=== PATIENT | female | born 1960 | race Caucasian/White ===

== ENCOUNTER 2020-09-07 09:48 | Outpatient (CLI) | payer BC, SELFPAY ==
[2020-09-07 10:45] LABS: Basophils Absolute Auto 0.1 K/mm3 (0.0-0.1); Basophils Percent Auto 1.1 % (0.2-1.2); Eosinophils Absolute Auto 0.3 K/mm3 (0-0.3); Eosinophils Percent Auto 5.1 % (0-4.4); Hematocrit 37.6 % (37.0-47.0); Hemoglobin 12.2 g/dL (12.0-15.0); Immature Granulocyte Absolute 0.01 K/mm3 (0.00-0.031); Immature Granulocyte Percent A 0.2 % (0-0.5); Lymphocytes Absolute Auto 1.24 K/mm3 (0.9-3.2); Lymphocytes Percent Auto 22.4 % (18.3-44.2); Mean Corpuscular HGB Conc 32.4 g/dl (32-36); Mean Corpuscular Hemoglobin 31.5 pg (26-34); Mean Corpuscular Volume 97.2 fl (80-100); Mean Platelet Volume 10.5 fl (7.4-10.4); Monocytes Absolute Auto 0.4 K/mm3 (0.1-0.6); Monocytes Percent Auto 6.7 % (2.6-8.5); Neutrophils Absolute Auto 3.6 K/mm3 (1.3-6.7); Neutrophils Percent Auto 64.5 % (45.5-73.1); Platelet Count Result 206 k/mm3 (150-375); Red Blood Count 3.87 M/mm3 (4.2-5.4); Red Cell Distribution Width 12.6 % (11.5-14.5); White Blood Count 5.5 K/mm3 (4.5-10.0)
[2020-09-07 10:55] LABS: INR 0.9; Prothrombin Time 12.6 Seconds (11.1-14.7)
[2020-09-07 10:56] LABS: Partial Thromboplastin Time 24.8 SECONDS (22.3-36.8)
[2020-09-07 10:58] LABS: Alanine Aminotransferase 24 U/L (4-35); Alkaline Phosphatase 55 U/L (38-126); Anion Gap 4 mmol/L (8-16); Aspartate Amino Transferase 30 U/L (14-36); Bilirubin,Total 0.6 mg/dL (0.2-1.3); Blood Urea Nitrogen 19 mg/dL (7-17); Calcium 9.2 mg/dL (8.4-10.2); Carbon Dioxide 33 mmol/L (22-30); Chloride 100 mmol/L (98-107); Estimated Glomerular Filt Rate > 60; Glucose 86 mg/dL (65-105); Potassium 3.9 mmol/L (3.4-5.0); Sodium 137 mmol/L (137-145)
== END 2020-09-07 09:49 | disposition home or self-care (01) ==
LOC: ANHSURGERY 09:52
PROVIDERS: PCP Family Medicine; Visit Provider Urology
DX: N39.3 Stress incontinence (female) (male) (principal); Z01.818 Encounter for other preprocedural examination
CPT/HCPCS: 36415; 80053; 85025; 85610; 85730; 86850; 86900; 86901; 87086

== ENCOUNTER 2020-09-16 01:57 | Outpatient (CLI) | payer BC, SELFPAY ==
[2020-09-16 19:10] LABS: SARS-CoV-2 RNA PCR Negative
== END 2020-09-16 01:58 | disposition home or self-care (01) ==
LOC: ANHCOVIDDT 01:57
PROVIDERS: PCP Family Medicine; Visit Provider Urology
DX: Z01.818 Encounter for other preprocedural examination (principal); Z20.828 Contact with and (suspected) exposure to other viral communicable diseases
CPT/HCPCS: 87635; C9803; U0003

== ENCOUNTER 2020-09-19 00:37 | Day surgery (SDC) | payer BC, SELFPAY ==
[2020-09-07 09:57] VITALS: BMI 31.2
[2020-09-07 10:31] VITALS: BP 167/76; PULSE 75; RESP 16; TEMP 37.2; O2SAT 96
--- NOTE | 2020-09-09 09:29 | PM.IMHP ---
H&P: HPI History of Present Illness Date/Time: 09/09/20 09:29 Chief complaint: stress incontinence, vag vault prolapse,rectocele Narrative: Jessica Garcias is a 60 year old female with POP and IZZY Review of Systems Review of Systems: All systems reviewed & are unremarkable except as noted in HPI and below PMFSH Past Medical History Medical History (Updated 09/09/20 @ 09:37 by Dennis Wagner MD) Acquired hypothyroidism Multinodular goiter Surgical History Surgical History H/O: hysterectomy Family History Family History Mother Hypertension Family history of diabetes mellitus in first degree relative Grandparent Carcinoma of colon Father Family history of heart disease in male family member before age 55 Other Diabetes mellitus Family history of arthritis Family history of malignant neoplasm Family history of obesity Family history of osteoporosis Family history of thyroid disease Social History Social History Smoking status: Never smoker Alcohol intake: never 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 Spiritual care concerns: No Meds Home Medications and Allergies Home Medications Medication Instructions Recorded Confirmed Type cetirizine 10 mg tablet 10 mg PO HS 10/29/19 09/07/20 History estradiol 2 mg tablet 2 mg PO DAILY 10/29/19 09/07/20 History levothyroxine 100 mcg tablet 100 mcg PO DAILY #90 tablet 04/21/20 09/07/20 Rx tramadol 50 mg tablet 50 mg PO Q8H PRN #60 tablet 08/29/20 09/07/20 Rx calcium carbonate-vitamin D3 1 tablet PO HS 09/07/20 09/07/20 History [Calcium 500 + D (D3)] fluticasone propionate [Flonase 2 spray NASAL PRN PRN 09/07/20 09/07/20 History Allergy Relief] meloxicam 15 mg PO HS 09/07/20 09/07/20 History multivitamin,[id number] 1 tablet PO HS 09/07/20 09/07/20 History [Complete Multivitamin] sumatriptan succinate 100 mg PO PRN PRN 09/07/20 09/07/20 History Allergies Allergy/AdvReac Type Severity Reaction Status Date / Time cefuroxime Allergy Severe Rash Verified 09/07/20 10:00 iodine Allergy Unknown Unknown Verified 09/07/20 10:00 Penicillins Allergy Unknown Unknown Verified 09/07/20 10:00 Sulfa (Sulfonamide Allergy Unknown Unknown Verified 09/07/20 10:00 Antibiotics) Exam Const: General: cooperative and healthy appearing HENMT: Head: normal to inspection Mouth: Yes Normal oral and palatal mucosa present Resp: Effort & Inspection: normal respiratory effort and able to speak in complete sentences : Bimanual Exam- Adnexa, other: vaginal apex descent (apex at -2, posterior wall at +2) Skin: General skin exam: normal color Extrem: General: normal to inspection Psych: Appearance: grossly normal Assessment and Plan Assessment and plan (1) Prolapse of vaginal vault after hysterectomy: Code(s): N99.3 - Prolapse of vaginal vault after hysterectomy Status: Acute Assessment and Plan: robotic colpopexy (2) IZZY (stress urinary incontinence, female): Code(s): N39.3 - Stress incontinence (female) (male) Status: Acute Assessment and Plan: urethral sling
[2020-09-19] VITALS (14 sets, daily range): BP systolic 113–152; BP diastolic 50–86; PULSE 59–93; RESP 14–20; TEMP 36.3–36.4; O2SAT 93–100
--- NOTE | 2020-09-19 07:14 | WPDHPUPDATE1 ---
History and Physical Update Update Date/Time: 09/19/20 07:14 History and Physical has been reviewed, including an updated exam of the patient. There are NO changes in the patient's condition. Risks, benefits, and alternatives have been discussed and questions answered. Patient agrees to proceed with procedure.
[2020-09-19] MEDS: LACTATED RINGERS 1,000 ML 30 ML IV CONT ×3 (09:15→15:55)
--- NOTE | 2020-09-19 09:23 | WPDANESEPPF ---
Anes - Initial Pre Proc Eval Procedure: Operation Date: 09/19/20 11:00 Proposed Procedures p Robotic Sacrocolpopexy, Urethral Sling - Dennis Wagner MD Date/Time: 09/19/20 09:23 Surgeon: Dennis Wagner MD Pre Op Diagnosis: stress incontinence, vag vault prolapse,rectocele Patient Data Age: 60 Gender: F Height: 5 ft 4 in Weight: 82 kg Last Vital Signs Temp 99.0 F 09/07/20 10:31 Pulse 75 09/07/20 10:31 Resp 16 09/07/20 10:31 BP 167/76 H 09/07/20 10:31 Pulse Ox 96 09/07/20 10:31 Allergies Allergy/AdvReac Type Severity Reaction Status Date / Time cefuroxime Allergy Severe Rash Verified 09/19/20 08:53 iodine Allergy Unknown Unknown Verified 09/19/20 08:53 Penicillins Allergy Unknown Unknown Verified 09/19/20 08:53 Sulfa (Sulfonamide Allergy Unknown Unknown Verified 09/19/20 08:53 Antibiotics) Home Medications Medication Instructions Recorded Confirmed Type cetirizine 10 mg tablet 10 mg PO HS 10/29/19 09/19/20 History estradiol 2 mg tablet 2 mg PO DAILY 10/29/19 09/19/20 History levothyroxine 100 mcg tablet 100 mcg PO DAILY #90 tablet 04/21/20 09/19/20 Rx tramadol 50 mg tablet 50 mg PO Q8H PRN #60 tablet 08/29/20 09/19/20 Rx calcium carbonate-vitamin D3 1 tablet PO HS 09/07/20 09/19/20 History [Calcium 500 + D (D3)] fluticasone propionate [Flonase 2 spray NASAL PRN PRN 09/07/20 09/07/20 History Allergy Relief] meloxicam 15 mg PO HS 09/07/20 09/19/20 History multivitamin,rn-hkfq-[id number] 1 tablet PO HS 09/07/20 09/19/20 History [Complete Multivitamin] sumatriptan succinate 100 mg PO PRN PRN 09/07/20 09/07/20 History Patient hx anesthesia problems: post op nausea/vomiting Family hx anesthesia problems: none PMFSH Past Medical History Medical History (Updated 09/19/20 @ 09:18 by Augusto Hyde MD) Acquired hypothyroidism Hypothyroidism Migraine Multinodular goiter Sleep apnea syndrome Surgical History Surgical History H/O: hysterectomy Family History Family History Mother Hypertension Family history of diabetes mellitus in first degree relative Grandparent Carcinoma of colon Father Family history of heart disease in male family member before age 55 Other Diabetes mellitus Family history of arthritis Family history of malignant neoplasm Family history of obesity Family history of osteoporosis Family history of thyroid disease Social History Social History Smoking status: Never smoker Alcohol intake: never Living arrangements: with family 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 Questions were solicited and answers provided to the satisfaction of the patient/family/POA.
[2020-09-19] MEDS: ONDANSETRON INJ 4 MG/2 ML VIAL IV PUSH (09:35)
[2020-09-19] MEDS: SCOPOLAMINE 1.5 MG PATCH TRANSDERM (09:36)
[2020-09-19] MEDS: levoFLOXacin 500 MG/D5W 100 ML 500 MG/100 ML BAG 100 MG IVPB (10:32)
--- NOTE | 2020-09-19 13:10 | PM.PROC ---
Procedure Note - Detailed Date of procedure: 09/19/20 Pre-op diagnosis: stress incontinence, vag vault prolapse,rectocele Post hysterectomy vaginal vault prolapse Stress urinary incontinence Post-op diagnosis: same Procedure performed: Robotic assisted laparoscopic sacral colpopexy Miid urethral sling Description of procedure: Anesthesia: General She understands the risks of bleeding, infection, recurrence of prolapse, diskitis, postoperative voiding dysfunction including incontinence and retention, dyspareunia, persistent or recurrent stress incontinence, vaginal mesh extrusion, urinary tract mesh erosion, bowel injury or obstruction, damage to surrounding organs, medical related complications. Agrees to proceed She was correctly identified and informed consent was obtained. She is brought to the operating room. She was given general anesthesia. She was placed in the low lithotomy position. All pressure points were padded. She was given appropriate perioperative antibiotics. A time-out was performed. I anesthetized the skin 3 fingerbreadths cephalad to the umbilicus. I incised the skin. I located the fascia. I entered the fascia sharply. I placed Vicryl sutures for later fascial closure. I placed a midline trocar. Under direct vision 2 additional trocars were placed in the right and left upper quadrant. She was placed in steep Trendelenburg. The robot was docked. I then sat at the console. There were some adhesions of colonic fat to the cul-de-sac. These were taken down sharply. With the Sizer in the vagina I created a plane on the anterior and posterior vaginal wall. I took great care not to injure the vagina bladder or rectum. Of note was intensely scarred in this area due to previous hysterectomy and cystocele repair. I introduced the mesh into the abdomen. I sewed the anterior leaflet of mesh on the anterior vaginal wall and posterior leaflet of mesh on the posterior vaginal wall with several sutures with 2 Goritex taking great care not to go through and through. I then reflected the colon laterally. I opened up the peritoneum over the sacral promontory. I carried this incision into the cul-de-sac. I located the ureter and kept lateral. I freed up the edges of the peritoneum. I located the anterior longitudinal ligament of the sacrum. I then tensioned my mesh appropriately. I did a vaginal exam to ensure prolapse reduction without undue tension. I then sewed the proximal leaflet of mesh onto the ligament with 3 sutures of 2 0 [place]. I used a 2 0 Monocryl to completely and meticulously retroperitonealized all mesh. I allowed the colon to go back into its normal anatomic location no sign of any impingement or stricturing. The abdomen was exited. Fascial sutures were closed. Skin was closed. Glue was applied. She was repositioned and prepped for urethral sling. I marked out the thigh incisions. I anesthetized the skin and made those incisions. I anesthetized the anterior vaginal wall over the mid urethra. I made a 1 cm incision. I dissected out laterally taking great care not to injure the urethra or the vaginal wall. I passed the helical trocars. First on the left and then on the right. This was done from the thigh incision towards the vaginal incision. The sling was connected to the trocars and brought out through the thigh incision. I tensioned the sling appropriately. I cut and removed the plastic sheaths. I then closed the incision with 2 0 Vicryl. Cystoscopy showed no surgical artifact in the bladder. No surgical artifact in the urethra. Ureteral orifices were seen to excrete clear yellow urine. The Sneed catheter was replaced. She was awakened and transferred to the PACU in stable condition. Implants: Y mesh Anesthesia: GETA Surgeon: Dennis Wagner MD Estimated blood loss (mL): 30 Drains: Yes (Sneed catheter) Packing: No Pathology: none sent Complications: No immediate complications Condition: stable
[2020-09-19] MEDS: fentaNYL CITRATE INJ (*CRX) 100 MCG/2 ML VIAL 25 MCG IV PUSH ×4 (13:35→13:47)
--- NOTE | 2020-09-19 13:51 | SUR.PHASEI ---
1350 - abdominal binder placed on pt for comfort
[2020-09-19] MEDS: oxyCODONE HCL (*CRX) 5 MG TAB IR PO (17:12)
--- NOTE | 2020-09-19 18:35 | SUR.PHASEII ---
PT HAD 300 POST URINATION RESIDUAL. CALLED DR STEPHEN AND HE ORDERED A 16 HONDURAN RUTH. NICOLE CHO PUT RUTH IN. 300 ML URINE WAS COLLECTED. PT WAS TOLD DR NARANJO OFFICE WOULD FOLLOW UP TOMORROW ABOUT TAKING RUTH OUT.
--- NOTE | 2020-09-20 07:49 | WPDANESPN ---
Anes - Prog Note Post-Op Date/Time: 09/20/20 07:49 Cardiovascular status: normal Respiratory status: normal Airway patency: baseline Mental status: baseline Post-Op hydration status: normal Vital Signs: Last Vital Signs Temp 36.3 C L 09/19/20 13:08 Pulse 93 09/19/20 17:27 Resp 14 09/19/20 17:27 BP 143/67 H 09/19/20 17:27 Pulse Ox 94 09/19/20 14:20 Pain Score (VAS): 1 I/O: Intake & Output 09/19/20 09/19/20 09/20/20 15:59 23:59 07:59 Intake Total 2000 800 Output Total 300 Balance 1700 800 Post-procedural complaints: none Patient Feedback: Patient satisfied with anesthetic care.
== END 2020-09-19 17:45 | disposition home or self-care (01) ==
PROVIDERS: PCP Family Medicine; Visit Provider Urology
PROC: (CPT 57425; principal; 2020-09-19 11:00)
DX: N39.3 Stress incontinence (female) (male) (principal); N99.3 Prolapse of vaginal vault after hysterectomy; E03.9 Hypothyroidism, unspecified; G47.30 Sleep apnea, unspecified
CPT/HCPCS: 57425; 57288; A9270; C1771; C1781; C9290; J0330; J1100; J1956; J2250; J2405; J2704; J3010; J7030; J7120

== ENCOUNTER 2021-04-06 11:59 | Emergency (ER) | payer OTHER, BC, SELFPAY ==
[2021-04-06 12:07] VITALS: BP 157/89; PULSE 76; RESP 16; TEMP 37.1; O2SAT 97
[2021-04-06 12:37] VITALS: BP 148/72; PULSE 76; RESP 20; TEMP 36.8; O2SAT 99
[2021-04-06 13:08] LABS: Hepatitis B Surface Antigen Negative (Negative)
[2021-04-06 13:29] LABS: Hepatitis C Virus Antibody Negative (Negative)
--- NOTE | 2021-04-06 13:40 | ED.WOUNDLAC ---
HPI - Wound/Laceration General Chief Complaint: Wound/Laceration Stated Complaint: finger stick Time Seen by Provider: 04/06/21 13:15 Source: patient Mode of arrival: ambulatory Limitations: no limitations History of Present Illness HPI narrative: Patient is a 60-year-old female who presents with a needlestick to left fourth digit. She reports giving Covid vaccines at [facility] when accidentally sticking her self with use needle. She denies all complaints at this time. Related Data Home Medications Medication Instructions Recorded Confirmed cetirizine 10 mg tablet 10 mg PO HS 10/29/19 09/19/20 estradiol 2 mg tablet 2 mg PO DAILY 10/29/19 09/19/20 Complete Multivitamin 1 tablet PO HS 09/07/20 09/19/20 calcium carbonate-vitamin D3 1 tablet PO HS 09/07/20 09/19/20 fluticasone propionate [Flonase 2 spray NASAL PRN PRN 09/07/20 09/07/20 Allergy Relief] Allergies Allergy/AdvReac Type Severity Reaction Status Date / Time cefuroxime Allergy Severe Rash Verified 10/26/20 13:01 iodine Allergy Unknown Unknown Verified 10/26/20 13:01 Penicillins Allergy Unknown Unknown Verified 10/26/20 13:01 Sulfa (Sulfonamide Allergy Unknown Unknown Verified 10/26/20 13:01 Antibiotics) Review of Systems Review of Systems: Narrative: CONSTITUTIONAL: Denies fever, chills, or sweats. EYES: Denies visual changes, redness, or discharge. ENT: Denies rhinorrhea, congestion, sore throat, or otalgia. CARDIOVASCULAR: Denies chest pain, palpitations, or edema. RESPIRATORY: Denies cough or dyspnea. GASTROINTESTINAL: Denies abdominal pain, nausea, vomiting, or diarrhea. GENITOURINARY: Denies dysuria or hematuria. SKIN: Needlestick to left fourth digit MUSCULOSKELETAL: Denies back pain, joint pain, or myalgia. NEUROLOGIC: Denies headache, numbness, dizziness, or weakness. PSYCHIATRIC: Denies anxiety or depression. [facility] Past Medical History Medical History Acquired hypothyroidism BMI 31.0-31.9,adult Hypothyroidism Migraine Multinodular goiter Sleep apnea syndrome Surgical History Surgical History H/O: hysterectomy Family History Family History Mother Hypertension Family history of diabetes mellitus in first degree relative Grandparent Carcinoma of colon Father Family history of heart disease in male family member before age 55 Other Diabetes mellitus Family history of arthritis Family history of malignant neoplasm Family history of obesity Family history of osteoporosis Family history of thyroid disease Social History Social History Smoking status: Never smoker Alcohol intake: never 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 Please see nursing chart for further information. There is no relevant family history pertinent to the presenting complaint. Exam Narrative: Exam Narrative: GENERAL: Well-appearing, well-nourished, and in no acute distress. HEAD: Normocephalic, atraumatic. EYES: EOMI. No redness or drainage. Conjunctiva are normal. ENT: Mucous membranes pink and moist. NECK: AROM. Supple. No lymphadenopathy. CHEST: No respiratory distress. EXTREMITIES: Normal range of motion. No edema. SKIN: Warm, dry, no rash. NEURO: No focal deficits. Alert and oriented x3. Gait steady. PSYCH: Normal affect. No signs of depression or anxiety. Course Vital Signs Vital signs: Vital Signs Temperature 37.1 C 04/06/21 12:07 Pulse Rate 76 04/06/21 12:07 Respiratory Rate 16 04/06/21 12:07 Blood Pressure 157/89 H 04/06/21 12:07 Pulse Oximetry 97 04/06/21 12:07 Temperature 36.8 C
[2021-04-06 14:43] LABS: HIV 1/2 Ab P24 Ag Result Negative (Negative)
== END 2021-04-06 14:59 | disposition home or self-care (01) ==
PROVIDERS: Emergency Medicine; Emergency Provider Nurse Practitioner; PCP Family Medicine
DX: S61.235A Puncture wound without foreign body of left ring finger without damage to nail, initial encounter (principal); E03.9 Hypothyroidism, unspecified; W46.0XXA Contact with hypodermic needle, initial encounter; Y92.512 Supermarket, store or market as the place of occurrence of the external cause; Y99.0 Civilian activity done for income or pay
CPT/HCPCS: 36415; 86703; 86803; 87340; 99283; G0432

== ENCOUNTER 2022-02-28 10:18 | Outpatient (CLI) | payer BC, SELFPAY ==
--- NOTE | ~2022-02-28 | US_ITS ---
EXAMINATION: US thyroid DATE: 02/28/2022 10:43 INDICATION: Nontoxic single thyroid nodule. TECHNIQUE: Multiple ultrasound images of the thyroid were obtained. COMPARISON: None. FINDINGS: The right thyroid lobe measures 6.3 x 3.2 x 2.7 cm. The left thyroid lobe measures 5.7 x 2.3 x 1.8 c m. The thyroid demonstrates diffusely heterogeneous hypoechogenicity. Vascularity is increased. No d iscrete nodule. IMPRESSION: 1. Heterogeneous, hypervascular thyroid, consistent with chronic lymphocytic (Katerin) thyroiditis. Reviewed, dictated and finalized at location B. IMPRESSION: 1. Heterogeneous, hypervascular thyroid, consistent with chronic lymphocytic (H ashimoto) thyroiditis.
== END 2022-02-28 10:19 | disposition home or self-care (01) ==
PROVIDERS: PCP Family Medicine; Visit Provider Internal Medicine Endocrinology, Diabetes & Metabolism
DX: E04.1 Nontoxic single thyroid nodule (principal); E03.9 Hypothyroidism, unspecified
CPT/HCPCS: 76536

== ENCOUNTER 2025-09-13 08:58 | Emergency (ER) | payer BC, SELFPAY ==
--- OUTSIDE RECORDS SUMMARY | 2019-06-10 23:00 | XMS_ITS | Encounter Summary ---
Author Organization [facility] Healthcare Address [address] [place] [address] Care Team Providers Care Inside Sales Name Role Phone Unavailable Primary Care Provider Unavailabl e Reason for Visit * Diagnostic Imaging (Routine) - Closed Specialty Diagnoses / Procedures Referred By Contac t Referred To Contact Procedures Breast Imaging Screening Outside Reference Transcribed Order, Provider Referral ID Status Reason Start Date Expiration Date Visits Re quested Visits Authorized [id number] Closed 10/16/2023 11/14/2024 1 1 Encounter Details Date Type Department Care Team (Late st Contact Info) Description 06/11/2019 Hospital Encounter [facility] [address] [place] [address] [phone] Social History Tobacco Use Types Packs/Day Years Used Date Smoking Tobacco: Former Cigarettes Q uit: 1985 AUDIT-C Answer Date Recorded Q1: How often do you have a drink containing alcohol? Never 11/20/2023 Q2: How many drinks containi ng alcohol do you have on a typical day when you are drinking? Patient does not drink Q3: How often do you have si x or more drinks on one occasion? 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 Never 11/20/2023 10:10 AM Viktoriya Carter CMA Q2: How many drinks containing alcohol do you have on a typical day when you are drinking? Patient does not drink 11/20/2023 10:10 AM Viktoriya Carter CMA Q3: How often do you have six or more drinks on one occasion? Never 11/20/2023 10:10 AM Viktoriya Carter CMA documented as of this encounter Plan of Treatment Not on file documented as of this encounter Procedures Procedure Name Priority Date/Time Associated Diagnosis Comments BREAST IMAGING MG SCREENING OUTSIDE REFERENCE Routine 06/11/2019 12:00 AM CDT documented in this encounter Results * Breast Imaging Screening Outside Reference (06/11/2019 12:00 AM CDT) Impressions [facility] - 10/16/2023 10:47 AM SHIPPING AND RECEIVING ASSOCIATE These images are for Reference purposes only and have not been reviewed by [facility]. There will be no report generated by a [facility]iologist. Narrative [facility] - 10/16/2023 10:47 AM SHIPPING AND RECEIVING ASSOCIATE EXAMINATION: Images For Reference Purposes Only us Provider Transcribed Order IMG MAMMO PROCEDURES Final Result [facility] documented in this encounter Visit Diagnoses Not on filedocumented in this encounter
--- OUTSIDE RECORDS SUMMARY | 2020-06-15 23:00 | XMS_ITS | Encounter Summary ---
Author Organization [facility] Healthcare Address [address] [place] [address] Care Team Providers Care Risk And Compliance Analytics Director Name Role Phone Unavailable Primary Care Provider Unavailabl e Reason for Visit * Diagnostic Imaging (Routine) - Closed Specialty Diagnoses / Procedures Referred By Contac t Referred To Contact Procedures Breast Imaging Screening Outside Reference Transcribed Order, Provider Referral ID Status Reason Start Date Expiration Date Visits Re quested Visits Authorized [id number] Closed 10/16/2023 11/14/2024 1 1 Encounter Details Date Type Department Care Team (Late st Contact Info) Description 06/16/2020 Hospital Encounter [facility] [address] [place] [address] [phone] Social History Tobacco Use Types Packs/Day Years [...] on file Legal Sex Female 3:47 PM ESTATE AND TRUST TAX PRINCIPAL Gender Identity Not on file Sexual Orientation Not on file documented as of this encounter Functional Status * AUDIT-C Score Answer Date of Assessment Author 0 11/20/2023 10:10 AM ESTATE AND TRUST TAX PRINCIPAL Viktoriya Langston CMA * Alcohol Use Question [...] BREAST IMAGING MG SCREENING OUTSIDE REFERENCE Routine 06/16/2020 12:00 AM CDT documented in this encounter Results * Breast Imaging Screening Outside Reference (06/16/2020 12:00 AM CDT) Impressions [facility] - 10/16/2023 10:47 AM ESTATE AND TRUST TAX PRINCIPAL These images are for Reference purposes only and have not been reviewed by [facility]. There will be no report generated by a [facility] Radiologist. Narrative [facility] - 10/16/2023 10:47 AM ESTATE AND TRUST TAX PRINCIPAL EXAMINATION: Images For Reference Purposes Only us Provider Transcribed Order IMG MAMMO PROCEDURES Final Result [facility] documented in this encounter Visit Diagnoses Not on filedocumented in this encounter
[2025-09-13 09:04] VITALS: BP 127/95; PULSE 88; RESP 18; TEMP 36.7; O2SAT 100
--- NOTE | 2025-09-13 09:24 | ED.URI ---
HPI - URI/Sore Throat General Chief Complaint: Upper Respiratory Infection Stated Complaint: Nasal Congestion/Ear Pain Time Seen by Provider: 09/13/25 09:24 Source: patient, RN notes reviewed and old records reviewed Mode of arrival: ambulatory Limitations: no limitations History of Present Illness HPI Narrative: 65 year old female who presents to [facility] with complaint of sinus congestion and ears feel full. Patient reports that she was treated about a month ago with Doxycycline for a sinus infection and she states her symptoms never resolved. She has been taking Mucinex and Sudafed without relief and has been using nasal rinses and also nasal spray. Patient reports no acute cough has tickle sensation in throat though. Patient reports no fevers, chills sweats or body aches. MD elicited complaint: rhinorrhea, nasal congestion, sinus pain and other (ear pain) Pertinent past history: sinusitis Onset (ago): month(s) (1) Consistency: constant Severity: moderate Description of mucous: clear and yellow (tinged) Able to tolerate fluids by mouth: Yes Treatments prior to arrival: other (sinus rinse, nasal spray, Mucinex and Sudafed) Related Data Home Medications ?Medication ?Instructions ?Recorded ?Confirmed ?Last Taken ?Type cetirizine 10 mg tablet (Zyrtec) 10 mg PO HS 10/29/19 04/28/25 09/18/20 History estradiol 2 mg tablet 2 mg PO DAILY 10/29/19 04/28/25 09/18/20 History fluticasone propionate 50 2 spray intranasal PRN PRN Allergy 09/07/20 04/28/25 Unknown History mcg/actuation nasal Symptoms spray,suspension (Flonase Allergy Relief) multivitamin,aj-lquf-bkzjihtk 1 tablet PO HS 09/07/20 04/28/25 09/10/20 History (Complete Multivitamin tablet) Allergies Allergy/AdvReac Type Severity Reaction Status Date / Time cefuroxime Allergy Severe Rash Verified 04/28/25 07:29 iodine Allergy Unknown Unknown Verified 04/28/25 07:29 Penicillins Allergy Unknown Unknown Verified 04/28/25 07:29 Sulfa (Sulfonamide Allergy Unknown Unknown Verified 04/28/25 07:29 Antibiotics) Review of Systems Review of Systems: CONSTITUTIONAL: Denies malaise, chills, sweats, or fever. EYES: Denies visual changes, redness, or discharge. ENT: Reports rhinorrhea, congestion, sinus pain, otalgia and no sore throat. CARDIOVASCULAR: Denies chest pain, palpitations, or edema. RESPIRATORY: Reports no acute cough.? Denies dyspnea. GASTROINTESTINAL: Denies abdominal pain, nausea, vomiting, diarrhea SKIN: Denies rash or itching. MUSCULOSKELETAL: Denies myalgia. NEUROLOGIC: Denies headache. All systems reviewed & are unremarkable except as noted in HPI and below PMFSH Past Medical History Medical History (Updated 09/14/25 @ 08:37 by Fanta Merino APRN) Sinusitis Anemia Essential hypertension Arthritis of left knee Eustachian tube dysfunction Low vitamin D level Migraine IZZY (stress urinary incontinence, female) Prolapse of vaginal vault after hysterectomy Thyroid nodule Sleep apnea syndrome Heart murmur Hypothyroidism Multinodular goiter Acquired hypothyroidism Surgical History Surgical History (Updated 09/14/25 @ 08:38 by Fanta Merino APRN) History of bladder surgery bladder tie up with hysterectomy H/O: hysterectomy Family History Family History Mother Hypertension Family history of diabetes mellitus in first degree relative Thyroid activity decreased Grandparent Carcinoma of colon Father Family history of heart disease in male family member before age 55 Acute myocardial infarction Sibling Family history of thyroid disease Arthritis Other Diabetes mellitus Family history of arthritis Family history of malignant neoplasm Family history of obesity Family history of osteoporosis Social History Social History Years smoked: 2 Smoking status: Former smoker Second hand tobacco smoke exposure: No Smoking end date: 10/14/85 Alcohol intake: never Substance use: never Substance use type: does not use Lack of Transportation: No Lack of Food: Never True Current Housing: I Have Housing Concerned About Future Housing: No Difficulty Paying Gas/Electric Bills: No Difficulty Paying for Meds: No Currently Unemployed: No Education: High School Diploma/GED Difficulty w/ Childcare or Family Care: No Living arrangements: with family Occupation/Education: retired 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 There is no relevant family history pertinent to the presenting complaint Exam Narrative: GENERAL: Well-appearing, well-nourished, and in no acute distress. HEAD: Normocephalic EYES: PERRLA, conjunctivae clear ENT: Nares clear, turbinates edematous and erythematous, clear to yellow tinged discharge. Mucous membranes moist. TM pearly hernandez with dull light reflex bilaterally; no tragal tenderness. Oropharynx erythematous without lesions. Tonsils not enlarged and without exudate, no drooling, no hoarseness, no trismus, uvula midline.post nasal drainage noted NECK: Supple. No lymphadenopathy CHEST: Clear to auscultation, breath sounds equal. No wheezing, rhonchi, rales, or stridor. No respiratory distress, speaks in full sentences.SAO2 100% on room air HEART: Regular rate and rhythm. No murmur heard. SKIN: Warm, dry, no rash. NEURO: Alert and oriented x3. PSYCH: Normal mood and affect Course Course Emergency Course: Patient is aware of diagnosis, understands and agrees to treatment plan.? Anticipatory guidance given.? Patient agrees to follow-up as directed and is aware of reasons to seek care at the emergency department. Portions of this record may have been created with voice recognition software Level of Care: Express Care Visit Vital Signs Vital signs: Vital Signs Temperature 36.7 C 09/13/25 09:04 Pulse Rate 88 09/13/25 09:04 Respiratory Rate 18 09/13/25 09:04 Blood Pressure 127/95 H 09/13/25 09:04 Pulse Oximetry 100 09/13/25 09:04 Oxygen Delivery Room Air 09/13/25 09:04 Temperature 36.7 C 09/13/25 09:04 Pulse Rate 88 09/13/25 09:04 Respiratory Rate 18 09/13/25 09:04 Blood Pressure 127/95 H 09/13/25 09:04 Pulse Oximetry 100 09/13/25 09:04 Oxygen Delivery Room Air 09/13/25 09:04 Reviewed MDM - URI/Sore Throat MDM Narrative Medical decision making narrative: Differential diagnosis considered: Lloyd virus, strep pharyngitis, allergic rhinitis, upper respiratory tract infection, sinusitis, rhinosinusitis, nasopharyngitis. viral pharyngitis, otitis media, otitis externa, pneumonia, bronchitis, viral cough syndrome, viral syndrome, and influenza.? Exam findings show no acute concerns or changes; patient is non-toxic appearing and is in no distress.? Patient is appropriate for outpatient treatment and follow-up. Differential Diagnosis Differential diagnosis: Likely upper respiratory infection, sinusitis, viral infection and other (otalgia) Medical Records Attestation: I reviewed the patient's medical records. Lab Data Attestation: I reviewed the patient's lab results. Critical Care Time Critical Care Time Critical Care Time: No Discharge Plan Discharge Clinical Impression: Bacterial sinusitis Patient Disposition: Home Condition: Stable Instructions: Antibiotic Form, Sinusitis (ED) Additional Instructions: Increase fluids especially juices and water [id number] cough and cold medicine of your choice for your symptoms Zyrtec Claritin or Cori daily include Coricidin brand decongestant since blood pressure elevated continue your nasal sprays as prescribed May continue your Mucinex heat to the face 20-30 minutes 4-6 times a day for pain Salt water gargles, throat lozenges or throat sprays as desired Antibiotic as directed--finished the medication If your symptoms persist, change or worsen significantly before you can contact your personal physician then please, without delay, go to the emergency department for further evaluation. Follow-up with PCP in 7-10 days or sooner if needed Follow up with PCP soon in regards to your blood pressure which is elevated above threshold for referral. Blood pressure above 120/80 may indicate pre-hypertension. 127/95 Patient Language: Estonian Prescriptions: New clarithromycin 500 mg tablet 500 mg PO Q12H Qty: 20 0RF Rx Instructions: take with food may upset stomach No Action calcium carbonate-vitamin D3 600 mg-20 mcg (800 unit) tablet 1 tablet PO BID Qty: 180 1RF levothyroxine 112 mcg tablet 112 mcg PO DAILY Qty: 90 3RF hydroxyzine HCl 10 mg tablet 10 mg PO TID PRN (Reason: itching) Qty: 30 0RF Rx Instructions: do not take at same time as Zyrtec triamcinolone acetonide 0.5 % cream 1 applic topical BID Qty: 80 0RF estradiol 2 mg tablet 2 mg PO DAILY cetirizine [Zyrtec] 10 mg tablet 10 mg PO HS fluticasone propionate [Flonase Allergy Relief] 50 mcg/actuation spray,suspension 2 spray NASAL PRN PRN (Reason: Allergy Symptoms) Rx Instructions: administer into each nostril Complete Multivitamin Tablet 1 tablet PO HS hydrochlorothiazide 25 mg tablet 25 mg PO DAILY Qty: 90 1RF meloxicam 15 mg tablet 15 mg PO HS Qty: 90 0RF Rx Instructions: TAKE 1 TABLET BY MOUTH EVERY DAY sumatriptan succinate 100 mg tablet 100 mg PO PRN PRN (Reason: MIGRAINS) Qty: 9 5RF Rx Instructions: take 1 tab at onset of headache; if no relief may repeat 1 tab in 2hr; max = 2 tabs/24 hrs PO rosuvastatin [Crestor] 10 mg tablet 10 mg PO DAILY Qty: 90 0RF Rx Instructions: generic please tramadol 50 mg tablet 50 mg PO Q8H PRN (Reason: pain) Qty: 60 0RF Follow-up/Referrals: Arnie Lance MD [Primary Care Provider, Family Practice] Time of Disposition: 09:37 Quality [place] Coma Scale Eyes: Open Verbal: Oriented and Alert Motor: Follows Commands [place] Coma Total Score: 15
--- OUTSIDE RECORDS SUMMARY | 2025-09-13 09:36 | XMS_ITS | Clinical Summary ---
Author Organization [facility] Address [address] [place] [address] Care Team Providers Care Cnc Lathe Programmer Name Role Phone Collette Gonzalez NP Unavailable [phone] Cecilio Hermosillo MD Unavailable [phone] Arnie Lance MD Primary Care Provider [phone] Allergies Active Allergy Reactions Criticality Noted Date Comments Cefuroxime Rash Medium 11/20/2023 Penicillin Rash Medium 11/20/2023 Sulfa Rash Medium 11/20/2023 Medications levothyroxine (SYNTHROID) 75 mcg tablet Levothyroxine Sodium 75 MCG Oral Tablet QTY: 0 tablet Days: 0 Refills: 0 Written: 02/13/18 Patient Instructions: 02/14/20 18 Active levothyroxine (SYNTHROID) 100 mcg tablet Take 1 tablet (100 mcg total) by mouth daily Act dora hydroCHLOROth iazide (HYDRODIURIL) 25 mg tablet hydroCHLOROthiazide 25 MG Oral Tablet QTY: 0 tablet Days: 0 Refills: 0 Written: 03/19/22 Patient Instructions: 03/19/20 22 Active meloxicam (MOBIC) 15 mg tablet Take 1 tablet (15 mg total) by mouth nightly at bedtime Active estradioL (ESTRACE) 2 mg tablet daily 03/20/20 23 Active traMADoL (ULTRAM) 50 mg tablet Take by mouth every 8 (eight) hours as needed Active SUMAtriptan (IMITREX) 100 mg tablet Take 1 tablet (100 mg total) by mouth daily as needed 02/25/20 20 Active cetirizine (ZyrTEC) 10 mg capsule ZyrTEC Allergy 10 MG Oral Capsule QTY: 0 capsule Days: 0 Refills: 0 Written: 02/25/20 Patient Instructions: 02/25/20 20 Active iron holly,ps-FA- B-C#12-succ 65 mg-65 mg -1,000 mcg (24) tablet Take by mouth Acti ve bisacodyL 5 mg tablet Take 5 mg by mouth daily Active Active Problems Problem Noted Date Diagnosed Date Family history of migraine headaches 11/20/2023 Surgical History Surgery Date Site/Laterality Comments HYSTERECTOMY 2007 BLADDER SURGERY Medical History Medical History Date Comments Thyroid disease Migraines Social History Tobacco Use Types Packs/Day Years Used Date Smoking Tobacco: Former Cigarettes Q uit: 1985 Tobacco Cessation:Counseling Given: Not Answered AUDIT-C Answer Date Recorded Q1: How often [...] on file 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 Gender Identity Not on file Sexual Orientation Not on file Last Filed Vital Signs Vital Sign Reading Time Taken Comments Blood Pressure - - Pulse - - Temperature - - Respiratory Rate - - Oxygen Saturation - - Inhaled Oxygen Concentration - - Weight 72.6 kg (160 lb) 03/17/2024 11:23 AM CDT Height 162.6 cm (5' 4) 03/17/2024 11:23 AM CDT Body Mass Index 27.46 03/17/2024 11:23 AM CDT Plan of Treatment Health Maintenance Due Date Last Done Comments Colon Cancer Screening-Colonoscopy 1961 Depression Screening 1961 Hepatitis C Screening 1960 Regular Well Visit/Exam 18-64 1979 Covid-19 Vaccine ( season) 2025 11/09/2021, 12/02/2020, 11/06/2020 Influenza Vaccine (#1) 2025 3, 07/24/2021, 07/25/2020, Additional history exists Breast Cancer Screening-Mammogram 06/23/2025 06/23/2024, 09/20/2023, 09/20/2023, Additional history exists DTaP/Tdap/Td Vaccine (2 - Td or Tdap) 03/11/2030 03/11/2020 Zoster Vaccine Completed 05/11/2019, 02/04/2019 Hepatitis B Screening Completed 06/13/2021 , 01/17/2021, 12/09/2020 Pneumococcal vaccine <65 Aged Out No longer eligible based on patient's age to complete this topic Procedures Procedure Name Priority Date/Time Associated Diagnosis Comments SCREENING MAMMOGRAM BILATERAL W HOMERO Schedule Routine, Read Routine (OP Routine) 06/23/2024 10:02 AM CDT Mass of lower outer quadrant of left breast from Last 3 Months or Most Recently Relevant to Health Maintenance Results * Screening Mammogram Bilateral W Homero (06/23/2024 10:02 AM CDT) Anatomical Region Laterality Modality Breast Bilateral Mammography Narrative 06/24/2024 10:08 AM CDT Mammogram Technique: Bilateral Digital Breast Tomosynthesis, Bilateral C-view 2D Screening mammogram. Views obtained: bilateral craniocaudal and bilateral mediolateral oblique. Computer Aided Detection was performed. Mammogram Findings: The present examination has been compared to prior imaging studies performed at [facility]. [facility] on 10/25/2022, 05/29/2023 and 09/20/2023. There are scattered areas of fibroglandular density. There is no suspicious abnormality in either breast. Impression: There is no mammographic evidence of malignancy. Annual screening mammography is recommended. OVERALL FINAL ASSESSMENT: BI-RADS CATEGORY 1: Negative. Procedure Note Marissa Otto MD - 06/24/2024 Mammogram Technique: Bilateral Digital Breast Tomosynthesis, Bilateral C-view 2D Screening mammogram. Views obtained: bilateral craniocaudal and bilateral mediolateral oblique. Computer Aided Detection was performed. Mammogram Findings: The present examination has been compared to prior imaging studies performed at [facility]. [facility] on 10/25/2022, 05/29/2023 and 09/20/2023. There are scattered areas of fibroglandular density. There is no suspicious abnormality in either breast. Impression: There is no mammographic evidence of malignancy. Annual screening mammography is recommended. OVERALL FINAL ASSESSMENT: BI-RADS CATEGORY 1: Negative. Brenda Jean Baptiste ELASTIC YARN TWISTER IMG MAMMO PROCEDURES Final Result from Last 3 Months or Most Recently Relevant to Health Maintenance [place] [place] Care Teams Cnc Lathe Programmer Relationship Specialty Start Date End Date Arnie Lance MD [address] [place] [address] PCP - General Family Medicine 10/08/23 Collette Gonzalez NP [address] [place] [address] Nurse Practitioner Obstetrics and Gynecology 09/24/23 Cecilio Hermosillo MD [address] [place] [address] Referring Physician Obstetrics and Gynecology 09/24/23
--- OUTSIDE RECORDS SUMMARY | 2025-09-13 09:36 | XMS_ITS | Clinical Summary ---
Author Organization [facility] Address [address] [place] [address] Care Team Providers Care Boom Cat Operator Name Role Phone Unavailable Primary Care Provider Unavailabl e Source Comments [facility],non-owned Affiliates and Associated Physician Practices is amultiple site organization consisting of ambulatory clinics and hospital sitesin [place], [place], [place] and [place]. This disclosure is being madepursuant to the Care Everywhere program and may not contain all information available regarding this patient. Last updated 18.[facility] [employer] Allergies Active Allergy Reactions Criticality Noted Date Comments Cefuroxime Rash Medium 07/20/2025 Penicillins Unknown 05/08/2017 Sulfa Antibiotics Unknown 05/08/2017 Medications * Be aware that medications may not be up to date on this document. Alwaysverify current medications with the patient. Calcium Carb-Cholecalciferol 600-3.125 MG-MCG TABS Take 1 tablet by mouth once daily Active estradiol (Estrace) 2 MG tablet Take 1 (one) tablet by mouth once daily Active hydroCHLOROthiazide (Hydrodiuril) 25 MG tablet Take 1 (one) tablet by mouth once daily 5 Active levothyroxine (Synthroid) 112 MCG tablet Take 1 (one) tablet by mouth once daily 5 Active meloxicam (Mobic) 15 MG tablet Take 1 (one) tablet by mouth at bedtime Active rosuvastatin (Crestor) 10 MG tablet Take 1 (one) tablet by mouth once daily 5 Active SUMAtriptan (Imitrex) 100 MG tablet Take 1 (one) tablet by mouth once daily as needed Active traMADol (Ultram) 50 MG tablet Take 1 (one) tablet by mouth every 8 hours as needed for Pain Active Levocetirizine Dihydrochloride (XYZAL PO) Take by mouth once daily as needed Active Encounters Date Type Department Care Team Description 07/20/2025 10:30 AM CDT Office Visit [facility] [address] [phone] Provider1, [facility] Acute non-recurrent frontal sinusitis (Primary Dx) 07/20/2025 Travel from Last 3 Months Social History Tobacco Use Types Packs/Day Years Used Date Smoking Tobacco: Never Smokeless Tobacco: Never Tobacco Cessation:Counseling Given: Yes Alcohol Use Standard Drinks/Week Comments Never 0 (1 standard drink = 0.6 oz pur e alcohol) PHQ-2 Answer Date Recorded Patient Health Questionnaire-2 Score 0 07/20/2025 Comments No Sex and Gender Information Value Date Recorded Sex Assigned at Not on file Legal Sex Female 11:17 AM CDT Gender Identity Not on file Sexual Orientation Not on file Last Filed Vital Signs Vital Sign Reading Time Taken Comments Blood Pressure 149/85 07/20/2025 10:35 AM CDT Pulse 74 07/20/2025 10:35 AM CDT Temperature 37.1 C (98.7 F) 07/20/2025 10:35 AM CDT Respiratory Rate - - Oxygen Saturation 95% 07/20/2025 10:35 AM CDT Inhaled Oxygen Concentration - - Weight 83 kg (183 lb) 07/20/2025 10:35 AM CDT Height 162.6 cm (5' 4) 07/20/2025 10:35 AM CDT Body Mass Index 31.41 07/20/2025 10:35 AM CDT Plan of Treatment Health Maintenance Due Date Last Done Comments COLOGUARD (AGES 45-75) - COLON CA SCREENING 1961 COLON MONITORING 1961 COLONOSCOPY - COLON CA SCREENING 1961 CT COLONOGRAPHY - COLON CA SCREENING 1961 Colorectal Cancer Screening 1961 FIT - COLON CA SCREENING 1961 FLEX SIG - COLON CA SCREENING 1961 HIV SCREENING 1976 HEPATITIS C SCREENING 06/21/1979 DTAP/TDAP/TD VACCINES (1 - Tdap) 1980 PNEUMOCOCCAL VACCINE 50+ (1 of 1 - PCV) 2011 ZOSTER VACCINE (1 of 2) 2011 COVID-19 VACCINE (4 - 2024- season) 2025 11/09/2021, 12/02/2020, 11/06/2020 INFLUENZA VACCINE (#1) 2025 , 08/11/2023, 07/24/2021, Additional history exists SCREENING FOR DIABETES 07/20/2025 MAMMOGRAM 09/20/2025 09/20/2023, 08/16, 08/18/2021, Additional history exists Respiratory Syncytial Virus (RSV) Vaccine Pt: or over 60 yrs (1 - 1-dose 75+ series) 2036 DEPRESSION SCREENING Completed 07/20/2025 HEPATITIS B VACCINE Aged Out No longe r eligible based on patient's age to complete this topic HIB VACCINE Aged Out No longer eligi ble based on patient's age to complete this topic HPV VACCINE Aged Out No longer eligi ble based on patient's age to complete this topic MENINGOCOCCAL (Group B) VACCINE SHARED DECISION-MAKING Aged Out No longer eligible based on patient's age to complete this topic MENINGOCOCCAL GROUPS A/C/Y/W VACCINE Aged Out No longer eligible based on patient's age to complete this topic Insurance DR PRICE [address] [facility]
--- OUTSIDE RECORDS SUMMARY | 2025-09-13 09:36 | XMS_ITS | Clinical Summary ---
Author Organization [facility] Address [address] [place] [address] Phone Care Team Providers Care Carbon Brusher Assembler Name Role Phone Arnie Lance MD Primary Care Provider [phone] Allergies Active Allergy Reactions Criticality Noted Date Comments Cefuroxime Axetil Unknown 05/08/2017 Iodine Unknown 05/08/2017 Penicillins Unknown 05/08/2017 Sulfa Antibiotics Unknown 05/08/2017 Medications Meloxicam 15 MG Tablet Take 15 mg by mouth 4 times daily as needed for Pain. Active traMADol (ULTRAM) 50 MG Tablet Take 50 mg by mouth every 6 hours as needed for Pain. Active levothyroxine (SYNTHROID) 100 MCG Tablet Take 100 mcg by mouth daily. Active Multiple Vitamin (MULTI-VITAMIN PO) Take by mouth daily. Active estradiol (ESTRACE) 2 MG Tablet Take 2 mg by mouth daily. Hazardous: Medication requires special safe handling and disposal. Active Calcium Carbonate-Vitam in D (Calcium-Vitami n D) 600-125 MG-UNIT Tablet Take by mouth daily. Active SUMAtriptan (IMITREX) 100 MG Tablet Take 100 mg by mouth daily as needed. Use as directed. May repeat dose in 2 hours if headache recurs. Active cetirizine (ZyrTEC) 10 MG Tablet Take 10 mg by mouth daily. Active Family History Medical History Relation Name Comments Heart Attack Father Cancer Maternal Uncle Arthritis Mother Asthma Mother Diabetes Mother Thyroid Disease Mother Cancer Paternal Grandfather Relation Name Status Comments Father Maternal Uncle Mother Paternal Grandfather Social History Tobacco Use Types Packs/Day Years Used Date Smoking Tobacco: Former Cigarettes 0.3 3 0 10/14/1982 - 10/14/1985 Smokeless Tobacco: Never Alcohol Use Standard Drinks/Week Comments No 0 (1 standard drink = 0.6 oz pur e alcohol) Comments No Sex and Gender Information Value Date Recorded Sex Assigned at Not on file Legal Sex Female 11:01 PM CDT Gender Identity Not on file Sexual Orientation Not on file Last Filed Vital Signs Vital Sign Reading Time Taken Comments Blood Pressure 137/78 02/24/2021 6:30 AM CDT Pulse 71 02/24/2021 6:30 AM CDT Temperature 36 C (96.8 F) 02/24/2021 6:30 AM CDT Respiratory Rate 22 02/24/2021 6:30 AM CDT Oxygen Saturation 99% 02/24/2021 6:30 AM CDT Inhaled Oxygen Concentration - - Weight 81.6 kg (180 lb) 02/02/2021 7:00 AM CDT Height 162.6 cm (5' 4) 02/02/2021 7:00 AM CDT Body Mass Index 30.9 02/02/2021 7:00 AM CDT Plan of Treatment Health Maintenance Due Date Last Done Comments Hepatitis C Virus (HCV) Screening 1961 Cologuard 2006 Pneumococcal Immunization (50+ years) (1 of 1 - PCV) 2011 Immunochemical Fecal Occult Blood 02/24/2021 02/25/2020 Mammogram 09/20/2024 09/20/2023, 08/16, 08/18/2021, Additional history exists Influenza Immunization (#1) 06/14/202507/14, 08/11/2023, 07/24/2021, Additional history exists SARS-COV-2 Immunization (2024- season) 2025 11/09/2021, 12/02/2020, 11/06/2020 Colonoscopy 02/25/2028 02/24/2021 Colorectal Cancer Screening 02/25/2028 Respiratory Syncytial Virus (RSV) Immunization (Adult) (1 - 1-dose 75+ series) 2036 Zoster Immunization Completed 05/11/2019, 9 DTaP/Tdap/Td Immunization Discontinued 03/11/2020 TdaP Immunization Completed 03/11/2020 Hepatitis B Immunization Completed 021, 01/17/2021, 12/09/2020 Human Papillomavirus (HPV) Immunization Aged Out No longer eligible based on patient's age to complete this topic Meningococcal Immunization (ACWY) Aged Out No longer eligible based on patient's age to complete this topic Rotavirus Immunization Aged Out No lo nger eligible based on patient's age to complete this topic Procedures Procedure Name Priority Date/Time Associated Diagnosis Comments JOHANNA DIAG BILATERAL DIGITAL W CAD W CHAVO Routine 09/20/2023 2:08 PM SUPERVISOR BODY ASSEMBLY Mass of left breast, unspecified quadrant from Last 3 Months or Most Recently Relevant to Health Maintenance Results * JOHANNA DIAG BILATERAL DIGITAL W CAD W CHAVO (09/20/2023 2:08 PM SUPERVISOR BODY ASSEMBLY) Anatomical Region Laterality Modality breast Bilateral Mammography 09/20/2023 1:14 PM SUPERVISOR BODY ASSEMBLY Narrative 09/20/2023 3:23 PM SUPERVISOR BODY ASSEMBLY - JOHANNA DIAG BILATERAL DIGITAL W CAD W CHAVO - JOHANNA US BREAST LIMITED LT BILATERAL DIGITAL DIAGNOSTIC MAMMOGRAM 3D/2D WITH CAD WITH MEDIOLATERAL OBLIQUE CRANIOCAUDAL AND LEFT ULTRASOUND: 09/20/2023 The study was acquired using digital technology and interpreted from soft copy. Current study was also evaluated with ICAD version 7.2. 2D digital mammographic views, as well as 3D digital tomosynthesis were performed in the CC and MLO projections. CLINICAL: Patient returns for a 1 year follow-up left breast. She reports a new palpable lump in her inner left breast for 2 months. She reports a 10 pound weight loss since her last exam. No personal history of cancer. No family history of breast cancer. COMPARISONS: Comparison is made to exams dated: 05/29/2023, 10/25/2022, 09/12/2022, and 08/18/2021 [facility]. BREAST TISSUE:There are scattered fibroglandular densities in both breasts. FINDINGS: BILATERAL DIAGNOSTIC MAMMOGRAM: The previously seen focal asymmetry at the 8 o'clock position of the left breast, middle depth is less prominent on the current examination. No other significant masses or calcifications are seen in either breast on the mammogram. Further evaluation was obtained with sonography. TARGETED LEFT BREAST ULTRASOUND: At the 9 o'clock position of the left breast, 7 cm from nipple, were now there is a palpable area of concern, there is a 1.2 x 1.0 x 0.7 cm heterogeneous largely hyperechoic focus which is superficial. This may be a hematoma although the patient does not recall any recent trauma. This will be classified as probably benign. IMPRESSION: OVERALL STUDY BIRADS: 3 PROBABLY BENIGN New superficial hyperechoic lesion at the new palpable area of concern which is in the region of the previously seen hypoechoic focus at the 9 o'clock position of the left breast, 7 cm from nipple. This may be hematoma. A follow-up left diagnostic mammogram and an ultrasound in 3 months are recommended. The results and recommendations were discussed with the patient. Electronically signed by: Elier Triana M.D. ll/:09/20/2023 15:01:26 Sand Sifter(s): RT Cesar(R)(M), [facility]; ESTELA Velasquez, [facility] letter sent: Birad 3 Followup Reading location: [facility] OVERALL STUDY BIRADS: 3 Probably benign Procedure Note Elier Triana MD - 09/20/2023 - JOHANNA DIAG BILATERAL DIGITAL W CAD W CHAVO - JOHANNA US BREAST LIMITED LT BILATERAL DIGITAL DIAGNOSTIC MAMMOGRAM 3D/2D WITH CAD WITH MEDIOLATERAL OBLIQUE CRANIOCAUDAL AND LEFT ULTRASOUND: 09/20/2023 The study was acquired using digital technology and interpreted from soft copy. Current study was also evaluated with ICAD version 7.2. 2D digital mammographic views, as well as 3D digital tomosynthesis were performed in the CC and MLO projections. CLINICAL: Patient returns for a 1 year follow-up left breast. She reports a new palpable lump in her inner left breast for 2 months. She reports a 10 pound weight loss since her last exam. No personal history of cancer. No family history of breast cancer. COMPARISONS: Comparison is made to exams dated: 05/29/2023, 10/25/2022, 09/12/2022, and 08/18/2021 [facility]. BREAST TISSUE:There are scattered fibroglandular densities in both breasts. FINDINGS: BILATERAL DIAGNOSTIC MAMMOGRAM: The previously seen focal asymmetry at the 8 o'clock position of the left breast, middle depth is less prominent on the current examination. No other significant masses or calcifications are seen in either breast on the mammogram. Further evaluation was obtained with sonography. TARGETED LEFT BREAST ULTRASOUND: At the 9 o'clock position of the left breast, 7 cm from nipple, were now there is a palpable area of concern, there is a 1.2 x 1.0 x 0.7 cm heterogeneous largely hyperechoic focus which is superficial. This may be a hematoma although the patient does not recall any recent trauma. This will be classified as probably benign. IMPRESSION: OVERALL STUDY BIRADS: 3 PROBABLY BENIGN New superficial hyperechoic lesion at the new palpable area of concern which is in the region of the previously seen hypoechoic focus at the 9 o'clock position of the left breast, 7 cm from nipple. This may be hematoma. A follow-up left diagnostic mammogram and an ultrasound in 3 months are recommended. The results and recommendations were discussed with the patient. Electronically signed by: Elier Triana M.D. ll/:09/20/2023 15:01:26 Sand Sifter(s): RT Cesar(R)(M), [facility]; ESTELA Velasquez, [facility] letter sent: Birad 3 Followup Reading location: [facility] OVERALL STUDY BIRADS: 3 Probably benign us Sherry Ortiz APRN, [employer] IMG MAMMO ORDERABLES Fi nal Result from Last 3 Months or Most Recently Relevant to Health Maintenance Insurance [employer] Care Teams Carbon Brusher Assembler Relationship Specialty Start Date End Date Arnie Lance MD [address] [place], [place] [id number] PCP - General Family Medicine 03/19/16
--- OUTSIDE RECORDS SUMMARY | 2025-09-13 09:36 | XMS_ITS | Encounter Summary ---
Author Organization [facility] Address [address] [place] [address] Phone Care Team Providers Care Divinity Teacher Name Role Phone Arnie Lance MD Primary Care Provider Encounter Details Date Type Department Care Team (Latest Contact Info) Description 08/28/2023 [facility] [address] [place] [address] Sherry Ortiz, AERIAL SPRAYER, [address] [place] [address] Mass of left breast, unspecified quadrant (Primary Dx) Social History Tobacco Use Types Packs/Day Years [...] on file documented as of this encounter Plan of Treatment Not on file documented as of this encounter Visit Diagnoses Diagnosis Mass of left breast, unspecified quadrant- Primary documented in this encounter Care Teams Divinity Teacher Relationship Specialty Start Date End Date Arnie Lance MD [address] [address] PCP - General Family Medicine 03/19/16 documented as of this encounter
== END 2025-09-13 09:47 | disposition home or self-care (01) ==
PROVIDERS: Emergency Provider Registered Nurse; PCP Family Medicine
DX: J32.9 Chronic sinusitis, unspecified (principal); I10 Essential (primary) hypertension; E03.9 Hypothyroidism, unspecified; E04.2 Nontoxic multinodular goiter; M17.12 Unilateral primary osteoarthritis, left knee; Z87.891 Personal history of nicotine dependence
CPT/HCPCS: 99213; G0463

== ENCOUNTER 2025-09-27 11:25 | Outpatient (CLI) | payer BC, SELFPAY ==
--- NOTE | ~2025-09-27 | XR_ITS ---
EXAMINATION: XR shoulder LT min 2V, 09/27/2025 11:35 STEM DRYER MAINTAINER HISTORY: M25.512 - Pain in left shoulder COMPARISON: No comparisons available. Findings: No acute fracture or malalignment. No significant degenerative changes. Soft tissues unremarkable. Impression: No acute fracture or malalignment. Reviewed, dictated and finalized at location P. DRYER MAINTAINER Impression: No acute fracture or malalignment.
== END 2025-09-27 11:26 | disposition home or self-care (01) ==
PROVIDERS: PCP Family Medicine; Visit Provider Physician Assistant Medical
DX: M25.512 Pain in left shoulder (principal)
CPT/HCPCS: 73030